=== PATIENT | male | born 1990 | race Caucasian/White ===

== ENCOUNTER 2021-12-29 07:56 | Emergency (ER) | payer MEDICAID, OTHER ==
[2021-12-29] MEDS ORDERED: XYLOCAINE 1% HCL 20 ML MDV ONE (08:07)
[2021-12-29 08:08] VITALS: O2SAT 98
[2021-12-29] MEDS ORDERED: BACIGUENT PACKET ONE (08:20)
--- NOTE | 2021-12-29 08:20 | ERPHSYRPT ---
- History of Present Illness Time Seen by Provider: 12/29/21 08:10 Source: patient Exam Limitations: no limitations Patient Subjective Stated Complaint: foreign object Triage Nursing Assessment: Patient ambulated back to ED and transferred self to bed. Patient A+O X3. Patient's skin pink, warm and dry. Patient states he was using a nail gun when the nail went into his left hand between his 1st and 2nd digit. Patient complains of intermittent sharp pain 4/10. Patient has nail sticking out of skin between 1st and 2nd digit. Physician History: Patient is a 31-year-old male who was working using an electrical nail gun when he impaled the webspace between the left thumb and index finger with a 2 to 3 inch nail. He has no other injuries he has no loss of sensation he has full range of motion the foreign body itself can be moved when palpated. This occurred just prior to arrival. By private vehicle. Patient states his tetanus is up-to-date. Occurred: just prior to arrival Method of Injury: incised Quality: throbbing Severity of Pain-Max: mild Severity of Pain-Current: mild Extremities Pain Location: hand: left (There is a 2 to 3 inch nail impaled in the webspace between the thumb and the index finger of the left hand. It entered from the dorsal aspect there is no exit wound.) Modifying Factors: Improves With: movement Associated Symptoms: none Allergies/Adverse Reactions: No Known Drug Allergies Allergy (Unverified 12/29/21 08:00) Hx Tetanus, Diphtheria Vaccination/Date Given: Yes Hx Influenza Vaccination/Date Given: No Hx Pneumococcal Vaccination/Date Given: No Immunizations Up to Date: Yes Travel Risk - International Travel Have you traveled outside of the country in past 3 weeks: No - Coronavirus Screening Are you exhibiting any of the following symptoms?: No Close contact with a COVID-19 positive Pt in past 14-21 Days: No - Vaccine Status Have you recieved a Covid-19 vaccination: No - Review of Systems Constitutional: No Fever, No Chills Eyes: No Symptoms Ears, Nose, & Throat: No Symptoms Respiratory: No Cough, No Dyspnea Cardiac: No Chest Pain, No Edema, No Syncope Abdominal/Gastrointestinal: No Abdominal Pain, No Nausea, No Vomiting, No Diarrhea Genitourinary Symptoms: No Dysuria Musculoskeletal: No Back Pain, No Neck Pain Skin: No Rash Neurological: No Dizziness, No Focal Weakness, No Sensory Changes Psychological: No Symptoms Endocrine: No Symptoms All Other Systems: Reviewed and Negative - Past Medical History Pertinent Past Medical History: No Neurological History: No Pertinent History ENT History: No Pertinent History Cardiac History: No Pertinent History Respiratory History: No Pertinent History Endocrine Medical History: No Pertinent History Musculoskeletal History: No Pertinent History GI Medical History: No Pertinent History History: No Pertinent History Psycho-Social History: No Pertinent History Male Reproductive Disorders: No Pertinent History - Past Surgical History Past Surgical History: No Neuro Surgical History: No Pertinent History Cardiac: No Pertinent History Respiratory: No Pertinent History Gastrointestinal: No Pertinent History Genitourinary: No Pertinent History Musculoskeletal: No Pertinent History Male Surgical History: No Pertinent History - Social History Smoking Status: Current every day smoker How long have you smoked: years Exposure to second hand smoke: Yes Drug Use: none Patient Lives Alone: No - Nursing Vital Signs Nursing Vital Signs: Initial Vital Signs Pulse Rate 81 12/29/21 08:01 Respiratory Rate 18 12/29/21 08:01 Blood Pressure 130/96 12/29/21 08:01 O2 Sat by Pulse Oximetry 98 12/29/21 08:01 Pain Scale Pain Intensity 4 - Physical Exam General Appearance: mild distress Eyes, Ears, Nose, Throat Exam: normal ENT inspection Neck Exam: normal inspection, non-tender Back Exam: normal inspection, normal range of motion Shoulder Exam: normal inspection, non-tender Elbow/Forearm Exam: normal inspection, non-tender Wrist Exam: normal inspection, non-tender Hand Exam: No normal inspection (Inspection of the left hand shows a nail impaled into the webspace between the thumb and the index finger.) Neuro/Tendon Exam: normal sensation, normal motor functions, normal tendon functions Mental Status Exam: alert, oriented x 3 Skin Exam: normal color, warm, dry, other (Nail impaled between the webspace of the thumb and index finger of the left hand) SpO2 Interpretation: normal SpO2: 98 O2 Delivery: Room Air Procedures - Laceration/Wound Repair Left Dorsal Hand Time of Procedure: 08:16 (Foreign body removed without difficulty after 3 cc of 1% lidocaine for anesthetic.) Wound Location: hand (Left hand) Wound Length (cm): 0.1 (There is a foreign body nail puncturing the webspace between the thumb and index finger left hand) Wound Explored: clean Irrigated: Yes Hibiclens Prep: Yes Anesthesia: 1% Lidocaine Volume Anesthetic (ccs): 4 Sterile Dressing Applied?: Yes Splint Applied?: No Sling Applied?: No - Course Nursing assessment & vital signs reviewed: Yes - Radiology Exams Left Hand X-ray Interpretation: Interpreted by me, Other (X-ray shows the foreign body shows no bony involvement or injury and was removed very easily.) Ordered Tests: Active Orders 24 hr Category Date Time Status HAND (MINIMUM 3 VIEWS) Stat Exams 12/29/21 08:08 Ordered Medication Summary Discontinued Medications Generic Name Dose Route Start Last Admin Trade Name Herveq PRN Reason Stop Dose Admin Lidocaine HCl Confirm 12/29/21 08:07 Lidocaine Hcl 1% 20 Ml Mdv 20 Ml Ml Administered 12/29/21 08:08 Dose 1 ml .ROUTE .STM&D ANTIQUES & CONSIGNMENT-MED ONE - Progress Progress: unchanged Progress Note: 12/29/21 08:20 Foreign body was removed without difficulty after it was anesthetized with 1% lidocaine 4 cc. He was cautioned about the possibility of infection even though he will be placed on prophylactic antibiotics. - Departure Departure Disposition: Home Clinical Impression: Foreign body of hand, left Condition: Stable Critical Care Time: No Instructions: Removal of Foreign Body in Skin Prescriptions: Cephalexin Mh 500 mg [Keflex 500 mg] 500 mg PO TID 7 Days #21 cap
[2021-12-29 08:34] VITALS: BP 121/83; PULSE 61
--- NOTE | 2021-12-29 09:10 | XRAY ---
Indication: Nail in hand. Comparison: None 3 view left hand demonstrates intact nail within the soft tissues anterior to 2nd metacarpal. No other bony, articular, or soft tissue abnormalities.
== END 2021-12-29 08:33 | disposition home or self-care (01) ==
LOC: ED 07:56
DX: S61.442A Puncture wound with foreign body of left hand, initial encounter (principal); W29.4XXA Contact with nail gun, initial encounter; Y93.H3 Activity, building and construction; Z72.0 Tobacco use
CPT/HCPCS: 10120; 73130; 99283; A9270-GY

== ENCOUNTER 2022-09-12 09:46 | Emergency (ER) | payer SELFPAY ==
[2022-09-12 10:41] LABS: INFLUENZA B NEGATIVE (NEGATIVE); RESPIRATORY SYNCTIAL VIRUS NEGATIVE (Negative); SARS-CoV-2 Xpert Express NEGATIVE (NEGATIVE)
[2022-09-12 10:46] LABS: INFLUENZA A POSITIVE (NEGATIVE)
--- NOTE | 2022-09-12 10:46 | ERPHSYRPT ---
- History of Present Illness Time Seen by Provider: 09/12/22 10:42 Source: patient Exam Limitations: no limitations Patient Subjective Stated Complaint: Pt states "For the past 8 days I have had body aches, fever, diarrhea and just not feeling well. I am coughing and my c hest ronquillo." Triage Nursing Assessment: Pt presented alert and oriented X 3, skin pwd. Pt ambulates with an upright steady gait, able to speak in clear full setences. Pt in no apaprent respiratory distress. Physician History: Pt states "For the past 8 days I have had body aches, fever, diarrhea and just not feeling well. I am coughing and my chest ronquillo." Pt ambulates with an upright steady gait, able to speak in clear full setences. Pt in no apaprent respiratory distress. Timing/Duration: day(s) (5-7 days) Cough Quality/Degree: no cough Possible Cause: no prior episodes Associated Symptoms: fever, chills Allergies/Adverse Reactions: No Known Drug Allergies Allergy (Verified 09/12/22 09:56) Hx Tetanus, Diphtheria Vaccination/Date Given: Yes Hx Influenza Vaccination/Date Given: No Hx Pneumococcal Vaccination/Date Given: No Immunizations Up to Date: Yes Travel Risk - International Travel Have you traveled outside of the country in past 3 weeks: No - Coronavirus Screening Are you exhibiting any of the following symptoms?: Yes Symptoms: Fever, Cough: New Onset, Vomiting/Diarrhea, Headaches/Body Aches/Fatigue Close contact with a COVID-19 positive Pt in past 14-21 Days: No - Vaccine Status Have you recieved a Covid-19 vaccination: No - Review of Systems Constitutional: Fever, Chills, Malaise Eyes: No Symptoms Ears, Nose, & Throat: No Symptoms Respiratory: No Cough, No Dyspnea Cardiac: No Chest Pain, No Edema, No Syncope Abdominal/Gastrointestinal: No Abdominal Pain, No Nausea, No Vomiting, No Diarrhea Genitourinary Symptoms: No Dysuria Musculoskeletal: No Back Pain, No Neck Pain Skin: No Rash Neurological: No Dizziness, No Focal Weakness, No Sensory Changes Psychological: No Symptoms Endocrine: No Symptoms All Other Systems: Reviewed and Negative - Past Medical History Pertinent Past Medical History: No Neurological History: No Pertinent History ENT History: No Pertinent History Cardiac History: No Pertinent History Respiratory History: No Pertinent History Endocrine Medical History: No Pertinent History Musculoskeletal History: No Pertinent History GI Medical History: No Pertinent History History: No Pertinent History Psycho-Social History: No Pertinent History Male Reproductive Disorders: No Pertinent History - Past Surgical History Past Surgical History: No Neuro Surgical History: No Pertinent History Cardiac: No Pertinent History Respiratory: No Pertinent History Gastrointestinal: No Pertinent History Genitourinary: No Pertinent History Musculoskeletal: No Pertinent History Male Surgical History: No Pertinent History - Social History Smoking Status: Current every day smoker How long have you smoked: years Exposure to second hand smoke: Yes Drug Use: none Patient Lives Alone: No - Nursing Vital Signs Nursing Vital Signs: Initial Vital Signs Temperature 100.9 F 09/12/22 09:53 Pulse Rate 107 H 09/12/22 09:53 Respiratory Rate 20 09/12/22 09:53 Blood Pressure 180/88 09/12/22 09:53 O2 Sat by Pulse Oximetry 99 09/12/22 09:53 Pain Scale Pain Intensity 6 - Physical Exam General Appearance: no apparent distress, alert Eye Exam: PERRL/EOMI, eyes nml inspection Ears, Nose, Throat Exam: normal ENT inspection, TMs normal, pharynx normal, moist mucous membranes Neck Exam: normal inspection, non-tender, supple, full range of motion Respiratory Exam: rhonchi, No respiratory distress Cardiovascular Exam: regular rate/rhythm, normal heart sounds Gastrointestinal/Abdomen Exam: soft, No tenderness Back Exam: normal inspection, No CVA tenderness, No vertebral tenderness Extremity Exam: normal inspection, normal range of motion Neurologic Exam: alert, oriented x 3, cooperative, normal mood/affect, sensation nml, No motor deficits Skin Exam: normal color, warm, dry, No rash Lymphatic Exam: No adenopathy SpO2: 99 - Course Nursing assessment & vital signs reviewed: Yes - Radiology Exams Chest X-ray Interpretation: Reviewed by me (right lower lobe infiltrate) Ordered Tests: Active Orders 24 hr Category Date Time Status CHEST 1 VIEW (PORTABLE) Stat Exams 09/12/22 10:00 Taken Lab/Rad Data: Laboratory Results 09/12/22 Range/Units 10:05 Influenza Type A Ag POSITIVE (NEGATIVE) Influenza Type B Ag NEGATIVE (NEGATIVE) RSV (PCR) NEGATIVE (Negative) SARS-CoV-2 (PCR) NEGATIVE (NEGATIVE) - Progress Progress: improved Air Movement: good Blood Culture(s) Obtained: No Antibiotics given: Yes Counseled pt/family regarding: lab results, diagnosis, need for follow-up, rad results - Departure Departure Disposition: Home Clinical Impression: Influenza A with pneumonia Condition: Stable Critical Care Time: No Referrals: DOCTOR,NO FAMILY [Primary Care Provider] - Follow up/PCP as directed Instructions: Flu, Adult (DC), Pneumonia, Adult (DC) Additional Instructions: Discharge/Care Plan TOM DALY JR was seen on 09/12/22 in the Emergency Room. The patient was counseled regarding Diagnosis,Lab results, Imaging studies, need for follow up and when to return to the Emergency Room. Prescriptions given: Discharge Note I have spoken with the patient and/or caregivers. I have explained the patient's condition, diagnosis and treatment plan based on the information available to me at this time. I have answered the patient's and/or caregiver's questions and addressed any concerns. The patient and/or caregivers have as good understanding of the patient's diagnosis, condition and treatment plan as can be expected at this point. The vital signs have been stable. The patient's condition is stable and appropriate for discharge from the emergency department. The patient will pursue further outpatient evaluation with the primary care physician or other designated or consulting physician as outlined in the discharge instructions. The patient and/or caregivers are agreeable to this plan of care and follow-up instructions have been explained in detail. The patient and/or caregivers have received these instruction. The patient/and or caregivers are aware that any significant change in condition or worsening of symptoms should prompt an immediate return to this or the closest emergency department or call 911. TOM DALY JR was seen on 09/12/22 n the Emergency Room. At that time you were treated for an emergent condition, during your visit Laboratory, Radiology and/or other procedures may have been ordered. It is very important that you follow-up with your Primary Care Physician NO FAMILY DOCTOR within the next 24-48 hours to review your Emergency Room visit and the final results of testing that was ordered. Some test results such as Urine Cultures, Blood Cultures, and other cultures if ordered will not be finalized for 24-48 hours. If you do not have a Primary Care Provider please call the medical records department at [phone] ext [phone] to obtain a copy of your results or you may sign into our patient portal to obtain these results by visiting us @ [email or web address] and completing the following steps: 1. Click on the Patient Portal link 2. Click the Patient Self Enrollment Link to complete the enrollment form and entering your 3. Once the enrollment form is completed you will receive an email with a temporary ID and password at the email address you provided. 4. Next choose a user name and password. Your user name must be at least 4 characters long and your password must be at least 4 characters long. 5. Choose a security question from the list and provide your answer to the question. If you already have signed into the Health Portal you may access your Health Care Information 03/05 by the following steps: 1. Login to our website @ [email or web address] 2. Enter your original user name and password. FAQS The [facility] Health Portal is an online tool that contains your Lab Results, Radiology Reports, Visit History, Discharge Instructions and Health Summary Lab and Radiology Results will not be available for 72 hours on the portal. The Portal is a secure site, passwords are encryted and URLs are re-written so they cannot be copied and pasted. You and authorized family members are the only ones who can access your Portal. Also there is a timeout feature that protects your information if you leave the Portal page open. If you have technical difficulty please use the Contact Us link on the page this will allow you to submit any questions you have regarding the Portal or you may contact the Medical Record Department at [phone]. Prescriptions: Methylprednisolone Packet [Medrol Dosepack] 4 mg PO UD #21 packet Oseltamivir 75 mg [Tamiflu 75MG Capsule] 75 mg PO BID #10 cap
[2022-09-12 10:50] VITALS: BP 132/78; PULSE 110; O2SAT 96
--- NOTE | 2022-09-12 17:30 | XRAY ---
Indication: Cough, short of breath, chills, and bodyaches 8 days. Comparison: None Portable chest demonstrates minimal right mid to lower lung stranding infiltrate versus atelectasis. Remaining heart, left lung, and bony thorax are normal.
== END 2022-09-12 10:56 | disposition home or self-care (01) ==
LOC: ED 09:46
DX: J10.00 Influenza due to other identified influenza virus with unspecified type of pneumonia (principal); R50.9 Fever, unspecified; M79.10 Myalgia, unspecified site; R19.7 Diarrhea, unspecified; R05.9 Cough, unspecified; Z28.310 Unvaccinated for COVID-19; Z72.0 Tobacco use; Z79.52 Long term (current) use of systemic steroids
CPT/HCPCS: 0241U; 71045; 99283

== ENCOUNTER 2022-12-01 18:56 | Emergency (ER) | payer OTHER ==
[2022-12-01 19:39] VITALS: BP 112/59; PULSE 68; O2SAT 98
[2022-12-01] MEDS ORDERED: Eye-Stream Solution ONE (20:54)
[2022-12-01] MEDS ORDERED: TETRACAINE 0.5% STERI-UNIT SOL OP ONE (20:54)
[2022-12-01] MEDS ORDERED: Fluor-I-Strip/Ful-Flo OP ONE ×2 (20:54→20:56)
[2022-12-01] MEDS ORDERED: TETRACAINE 0.5% STERI-UNIT SOL OP STA (20:56)
[2022-12-01] MEDS ORDERED: Eye-Stream Solution OP ONE (20:56)
[2022-12-01] MEDS ORDERED: Erythromycin 3.5 GM OPHTH. OP ONE (21:05)
[2022-12-01] MEDS ORDERED: Erythromycin 1 GM ONE (21:06)
--- NOTE | 2022-12-01 21:11 | ERPHSYRPT ---
- History of Present Illness Time Seen by Provider: 12/01/22 19:50 Exam Limitations: no limitations Patient Subjective Stated Complaint: pt states he was chiseling away some mortar and a piece flew up and hit him in the rt eye. states he flushed it well but is having continued pain and tearing. Triage Nursing Assessment: pt alert and oriented, answers questions approp. pt ambulates into room with steady gait noted. respirations nonlabore. skin warm and dry. tearing from rt eye noted. redness to sclera. Physician History: Patient is a 32-year-old male presents to the emergency department for evaluation of pain to his right eye. Patient states he was chiseling on mortar when a fragment flew and hit him in his right eye. Patient has pain in the right eye. No acute change in vision. No headache. No nausea or vomiting. No other injuries reported. Patient admits that he was not wearing protective eyewear. Patient voices no other complaints or concerns at this time. Portions of this note were created with voice recognition technology. There may be grammatical, spelling, punctuation or sound alike errors Timing/Duration: today Location: right eye Severity: moderate Apparent Injury: yes Associated Symptoms: pain, redness Visual Assistive Devices: None Chemical Exposure: No Trauma: Yes Welding Arc/Tanning Bed Exposure: No Allergies/Adverse Reactions: No Known Drug Allergies Allergy (Verified 12/01/22 19:39) Hx Tetanus, Diphtheria Vaccination/Date Given: Yes Hx Influenza Vaccination/Date Given: No Hx Pneumococcal Vaccination/Date Given: No Immunizations Up to Date: Yes Travel Risk - International Travel Have you traveled outside of the country in past 3 weeks: No - Coronavirus Screening Are you exhibiting any of the following symptoms?: No Close contact with a COVID-19 positive Pt in past 14-21 Days: No - Vaccine Status Have you recieved a Covid-19 vaccination: No - Review of Systems Constitutional: No Symptoms, No Fever, No Chills Eyes: No Symptoms Ears, Nose, & Throat: No Symptoms Respiratory: No Symptoms, No Cough, No Dyspnea Cardiac: No Symptoms, No Chest Pain, No Edema, No Syncope Abdominal/Gastrointestinal: No Symptoms, No Abdominal Pain, No Nausea, No Vomiting, No Diarrhea Genitourinary Symptoms: No Symptoms, No Dysuria Musculoskeletal: No Symptoms, No Back Pain, No Neck Pain Skin: No Symptoms, No Rash Neurological: No Symptoms, No Dizziness, No Focal Weakness, No Sensory Changes Psychological: No Symptoms Endocrine: No Symptoms Hematologic/Lymphatic: No Symptoms Immunological/Allergic: No Symptoms All Other Systems: Reviewed and Negative - Past Medical History Pertinent Past Medical History: No Neurological History: No Pertinent History ENT History: No Pertinent History Cardiac History: No Pertinent History Respiratory History: No Pertinent History Endocrine Medical History: No Pertinent History Musculoskeletal History: No Pertinent History GI Medical History: No Pertinent History History: No Pertinent History Psycho-Social History: No Pertinent History Male Reproductive Disorders: No Pertinent History - Past Surgical History Past Surgical History: No Neuro Surgical History: No Pertinent History Cardiac: No Pertinent History Respiratory: No Pertinent History Gastrointestinal: No Pertinent History Genitourinary: No Pertinent History Musculoskeletal: No Pertinent History Male Surgical History: No Pertinent History - Social History Smoking Status: Current every day smoker How long have you smoked: 15 yrs Exposure to second hand smoke: Yes Drug Use: none Patient Lives Alone: No - Nursing Vital Signs Nursing Vital Signs: Initial Vital Signs Temperature 96.9 F 12/01/22 19:28 Pulse Rate 68 12/01/22 19:28 Respiratory Rate 18 12/01/22 19:28 Blood Pressure 112/59 12/01/22 19:28 O2 Sat by Pulse Oximetry 98 12/01/22 19:28 Pain Scale Pain Intensity 8 - Physical Exam Vision Acuity Degree Evaluation Phase: Uncorrected Vision Acuity Right Eye: 20/200 Vision Acuity Left Eye: 20/200 Intraocular Pressure (Tonopen): right (16) Eye Exam: right eye: corneal abrasion, left eye: normal inspection, PERRL, EOMI Ears, Nose, Throat Exam: normal ENT inspection, TMs normal, pharynx normal Neck Exam: normal inspection, non-tender, supple, full range of motion Respiratory Exam: normal breath sounds, chest tenderness, lungs clear, respiratory distress Cardiovascular Exam: regular rate/rhythm, normal heart sounds, normal peripheral pulses Gastrointestinal Exam: soft, normal bowel sounds, No tenderness Extremity Exam: normal inspection, normal range of motion, No pelvis stable Neurologic: alert, oriented x 3, cooperative, 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 circuits inspector II-XII 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 as tested Skin Exam: normal color, warm, dry Lymphatic: No adenopathy SpO2 Interpretation: normal SpO2: 98 O2 Delivery: Room Air - Course Nursing assessment & vital signs reviewed: Yes Ordered Tests: Medication Summary Discontinued Medications Generic Name Dose Route Start Last Admin Trade Name Saul PRN Reason Stop Dose Admin Erythromycin 3.5 gm 12/01/22 21:05 Erythromycin Base 3.5 Gm Tube Eye Ointment OP 12/01/22 21:06 STAT ONE Erythromycin Confirm 12/01/22 21:06 Erythromycin Base 1 Gm Tube Eye Ointment Administered 12/01/22 21:07 Dose 1 gm .ROUTE .STK-MED ONE Eye Irrigation Solution Confirm 12/01/22 20:54 Sodium/Potassium/Nghia/Magnesium 30 Ml Eye Wash Administered 12/01/22 20:55 Dose 30 ml .ROUTE .STK-MED ONE Eye Irrigation Solution 15 ml 12/01/22 20:56 12/01/22 21:00 Sodium/Potassium/Nghia/Magnesium 30 Ml Eye Wash OP 12/01/22 20:57 30 ml STAT ONE Administration Fluorescein Sodium Confirm 12/01/22 20:54 Fluorescein Sodium 1 Mg/Strip Strip Administered 12/01/22 20:55 Dose 1 mg OP .STK-MED ONE Fluorescein Sodium 1 mg 12/01/22 20:56 12/01/22 20:59 Fluorescein Sodium 1 Mg/Strip Strip OP 12/01/22 20:57 1 mg STAT ONE Administration Tetracaine HCl Confirm 12/01/22 20:54 Tetracaine Hcl/Pf 4 Ml Bottle Administered 12/01/22 20:55 Dose 4 ml OP .STK-MED ONE Tetracaine HCl 4 ml 12/01/22 20:56 12/01/22 20:59 Tetracaine Hcl/Pf 4 Ml Bottle OP 12/01/22 20:57 4 ml STAT STA Administration - Progress Progress: improved Progress Note: Patient is a 32-year-old male presents to our ED for evaluation of eye pain. Patient was hit in the eye by a piece of mortar. Physical exam is negative for Derek. Negative Derek sign. No globe rupture. No hyphema. The only finding physical exam is a corneal abrasion at approximately 12:00. Patient does not wear contacts or eyeglasses. Patient is required to wear eyeglasses but states that he does not for unclear reasons. Diagnosis was made based on history and physical examination. Complexity of problems addressed is low. Problem is acute and uncomplicated. No critical care time. Complexity of data reviewed and analyzed is none. Risk of complication and or risk of morbidity/mortality of patient management is minimal. Patient management involves topical application of erythromycin ophthalmic antibiotic. Patient will be discharged home. He voices no other complaints concerns at this time. Pain well controlled at this time after application of tetracaine. Portions of this note were created with voice recognition technology. 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 The patient was counseled regarding Diagnosis,Lab results, Imaging studies, need for follow up and when to return to the Emergency Room. Prescriptions given: Discharge Note I have spoken with the patient and/or caregivers. I have explained the patient's condition, diagnosis and treatment plan based on the information available to me at this time. I have answered the patient's and/or caregiver's questions and addressed any concerns. The patient and/or caregivers have as good understanding of the patient's diagnosis, condition and treatment plan as can be expected at this point. The vital signs have been stable. The patient's condition is stable and appropriate for discharge from the emergency department. The patient will pursue further outpatient evaluation with the primary care physician or other designated or consulting physician as outlined in the discharge instructions. The patient and/or caregivers are agreeable to this plan of care and follow-up instructions have been explained in detail. The patient and/or caregivers have received these instruction. The patient/and or caregivers are aware that any significant change in condition or worsening of symptoms should prompt an immediate return to this or the closest emergency department or call 911. Prescriptions: Erythromycin Base 3.5 gm [Erythromycin 3.5 GM OPHTH.] 3.5 gm OP QID 7 Days #1
== END 2022-12-01 21:27 | disposition home or self-care (01) ==
LOC: ED 18:56
DX: S05.01XA Injury of conjunctiva and corneal abrasion without foreign body, right eye, initial encounter (principal); W20.8XXA Other cause of strike by thrown, projected or falling object, initial encounter; H57.11 Ocular pain, right eye; Z28.310 Unvaccinated for COVID-19; Z72.0 Tobacco use
CPT/HCPCS: 99281; A9270-GY

== ENCOUNTER 2023-08-06 15:36 | Emergency (ER) | payer OTHER ==
--- NOTE | 2023-08-06 15:46 | ERPHSYRPT ---
- History of Present Illness Time Seen by Provider: 08/06/23 15:46 Historian: patient Exam Limitations: no limitations Patient Subjective Stated Complaint: pt here for fever, vomiting,headache, aches since yesterday, no treatement Triage Nursing Assessment: pt alert, arrived per wc, resp easy, stuffy nose, dry cough, skin w/d/p. no edema noted, Physician History: This is a 33-year-old white male patient who is not on any medications and has no known drug allergies and presents with approximately 2-day history of nausea vomiting headache, fever and body aches. He also has nasal congestion and dry cough. He has no known exposures to individuals same symptoms or who have been diagnosed with viral illnesses. Patient is a bit concerned about dehydration. Patient denies chest pain. He denies shortness of breath Timing/Duration: yesterday Activities at Onset: none Quality: aching Severity of Pain-Max: none Severity of Pain-Current: none Modifying Factors: Improves With: vomiting Associated Symptoms: fever/chills, loss of appetite, nausea, vomiting, weakness, No chest pain, No diarrhea, No shortness of breath Previous symptoms: no prior history, no recent treatment Allergies/Adverse Reactions: No Known Drug Allergies Allergy (Verified 08/06/23 15:39) Hx Tetanus, Diphtheria Vaccination/Date Given: Yes Hx Influenza Vaccination/Date Given: No Hx Pneumococcal Vaccination/Date Given: No Immunizations Up to Date: Yes Travel Risk - International Travel Have you traveled outside of the country in past 3 weeks: No - Coronavirus Screening Are you exhibiting any of the following symptoms?: Yes Symptoms: Fever, Cough: New Onset, Vomiting/Diarrhea Close contact with a COVID-19 positive Pt in past 14-21 Days: No - Vaccine Status Have you recieved a Covid-19 vaccination: No - Review of Systems Constitutional: Fever, Weakness Eyes: No Symptoms Ears, Nose, & Throat: Throat Pain Respiratory: Cough Cardiac: No Symptoms Abdominal/Gastrointestinal: Nausea, Vomiting, Appetite Changes, No Abdominal Pain, No Diarrhea, No Constipation Genitourinary Symptoms: No Symptoms Musculoskeletal: Arthralgias, Myalgias Skin: No Symptoms Neurological: No Symptoms Psychological: No Symptoms Endocrine: No Symptoms Hematologic/Lymphatic: No Symptoms Immunological/Allergic: No Symptoms All Other Systems: Reviewed and Negative - Past Medical History Pertinent Past Medical History: No Neurological History: No Pertinent History ENT History: No Pertinent History Cardiac History: No Pertinent History Respiratory History: No Pertinent History Endocrine Medical History: No Pertinent History Musculoskeletal History: No Pertinent History GI Medical History: No Pertinent History History: No Pertinent History Psycho-Social History: No Pertinent History Male Reproductive Disorders: No Pertinent History - Past Surgical History Past Surgical History: No Neuro Surgical History: No Pertinent History Cardiac: No Pertinent History Respiratory: No Pertinent History Gastrointestinal: No Pertinent History Genitourinary: No Pertinent History Musculoskeletal: No Pertinent History Male Surgical History: No Pertinent History - Social History Smoking Status: Current every day smoker How long have you smoked: 15 yrs Exposure to second hand smoke: Yes Drug Use: none Patient Lives Alone: No - Nursing Vital Signs Nursing Vital Signs: Initial Vital Signs Temperature 101.3 F 08/06/23 15:44 Pulse Rate 120 H 08/06/23 15:44 Respiratory Rate 18 08/06/23 15:44 Blood Pressure 135/75 08/06/23 15:44 O2 Sat by Pulse Oximetry 95 08/06/23 15:44 Pain Scale Pain Intensity 7 - Physical Exam General Appearance: no apparent distress, alert, anxiety, thin Eye Exam: PERRL/EOMI, eyes nml inspection Ears, Nose, Throat Exam: normal ENT inspection, TMs normal, moist mucous membranes Neck Exam: normal inspection, non-tender, supple, full range of motion Respiratory Exam: normal breath sounds, lungs clear, airway intact, No chest tenderness, No respiratory distress Cardiovascular Exam: regular rate/rhythm, normal heart sounds, normal peripheral pulses Gastrointestinal/Abdomen Exam: soft, normal bowel sounds, No tenderness Rectal Exam: not done Back Exam: normal inspection, normal range of motion, No CVA tenderness, No vertebral tenderness Extremity Exam: normal inspection, normal range of motion, pelvis stable Neurologic Exam: alert, oriented x 3, cooperative, 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-XII nml as tested, normal mood/affect, nml cerebellar function, nml station & gait, sensation nml Skin Exam: normal color, warm, dry Lymphatic Exam: No adenopathy SpO2 Interpretation: normal SpO2: 95 O2 Delivery: Room Air - Course Nursing assessment & vital signs reviewed: Yes Ordered Tests: Active Orders 24 hr Category Date Time Status IV Insertion STAT Care 08/06/23 15:51 Active BLOOD CULTURE Stat Lab 08/06/23 16:00 Received CBC W DIFF Stat Lab 08/06/23 15:45 Completed CMP Stat Lab 08/06/23 15:45 Completed MONO SCREEN Stat Lab 08/06/23 16:00 Completed UA W/RFX UR CULTURE Stat Lab 08/06/23 17:26 Completed Medication Summary Generic Name Dose Route Start Last Admin Trade Name Saul PRN Reason Stop Dose Admin Sodium Chloride 1,000 mls @ 999 mls/hr 08/06/23 17:29 08/06/23 17:34 Sodium Chloride 0.9% 1000 Ml IV 08/06/23 18:29 999 mls/hr .Q1H1M STA Administration Discontinued Medications Generic Name Dose Route Start Last Admin Trade Name Saul PRN Reason Stop Dose Admin Hydrocodone Bitart/Acetaminophen 10 ml 08/06/23 17:28 08/06/23 17:34 Hydrocodone/Acetaminophen 5 Ml Udcup PO 08/06/23 17:29 10 ml STAT STA Administration Hydrocodone Bitart/Acetaminophen Confirm 08/06/23 17:32 Hydrocodone/Acetaminophen 5 Ml Udcup Administered 08/06/23 17:33 Dose 10 ml .ROUTE .STK-MED ONE Sodium Chloride 1,000 mls @ 999 mls/hr 08/06/23 15:51 08/06/23 16:57 Sodium Chloride 0.9% 1000 Ml IV 08/06/23 16:51 Infused .Q1H1M STA Infusion Sodium Chloride Confirm 08/06/23 15:54 Sodium Chloride 0.9% 1000 Ml Administered 08/06/23 15:55 Dose 1,000 mls @ ud .ROUTE .STK-MED ONE Sodium Chloride Confirm 08/06/23 17:32 Sodium Chloride 0.9% 1000 Ml Administered 08/06/23 17:33 Dose 1,000 mls @ ud .ROUTE .STK-MED ONE Ibuprofen 600 mg 08/06/23 17:28 08/06/23 17:34 Ibuprofen 600 Mg Tablet PO 08/06/23 17:29 600 mg STAT ONE Administration Ibuprofen Confirm 08/06/23 17:32 Ibuprofen 600 Mg Tablet Administered 08/06/23 17:33 Dose 600 mg .ROUTE .STK-MED ONE Ondansetron HCl 4 mg 08/06/23 15:51 08/06/23 15:56 Ondansetron Hcl 4 Mg/2 Ml Vial IV 08/06/23 15:52 4 mg STAT STA Administration Ondansetron HCl Confirm 08/06/23 15:54 Ondansetron Hcl 4 Mg/2 Ml Vial Administered 08/06/23 15:55 Dose 4 mg .ROUTE .[facility]-MED ONE Lab/Rad Data: Laboratory Result Diagrams 08/06/23 15:45 08/06/23 15:45 Laboratory Results 08/06/23 08/06/23 08/06/23 Range/Units 17:26 16:00 16:00 WBC (4.0-10.5) x10^3/uL RBC (4.1-5.6) x10^6/uL Hgb (12.5-18.0) g/dL Hct (42-50) % MCV (78-100) fL MCH (26-32) pg MCHC (32-36) g/dL RDW (11.5-14.0) % Plt Count (150-450) x10^3/uL MPV (7.5-11.0) fL Gran % (36.0-66.0) % Immature Gran % (Auto) (0.00-0.4) % Nucleat RBC Rel Count (0.00-0.1) % Eos # (Auto) (0-0.5) x10^3/uL Immature Gran # (Auto) (0.00-0.03) x10^3u/L Absolute Lymphs (auto) (1.0-4.6) x10^3/uL Absolute Monos (auto) (0.0-1.3) x10^3/uL Absolute Nucleated RBC (0.00-0.01) x10^3u/L Lymphocytes % (24.0-44.0) % Monocytes % (0.0-12.0) % Eosinophils % (0.00-5.0) % Basophils % (0.0-0.4) % Absolute Granulocytes (1.4-6.9) x10^3/uL Basophils # (0-0.4) x10^3/uL Sodium (137-145) mmol/L Potassium (3.5-5.1) mmol/L Chloride (98-107) mmol/L Carbon Dioxide (22-30) mmol/L Anion Gap (5-15) MEQ/L BUN (9-20) mg/dL Creatinine (0.66-1.25) mg/dL Estimated GFR ML/MIN Glucose (74-106) mg/dL Calcium (8.4-10.2) mg/dL Total Bilirubin (0.2-1.3) mg/dL AST (17-59) U/L ALT (0-50) U/L Alkaline Phosphatase (38-126) U/L Serum Total Protein (6.3-8.2) g/dL Albumin (3.5-5.0) g/dL Urine Color Yellow (Yellow) Urine Appearance Clear (Clear) Urine pH 5.5 (4.6-8.0) Ur Specific [place] 1.020 (1.005-1.030) Urine Protein Trace A (Negative) Urine Glucose (UA) Negative (Negative) mg/dL Urine Ketones 80 A (Negative) Urine Blood Negative (Negative) Urine Nitrite Negative (Negative) Urine Bilirubin Negative (Negative) Urine Urobilinogen 1.0 A (0.2) mg/dL Ur Leukocyte Esterase Negative (Negative) U Hyaline Cast (Auto) NONE SEEN (0-2) /LPF Urine Microscopic RBC 0-2 (0-5) /HPF Urine Microscopic WBC 0-2 (0-5) /HPF Ur Epithelial Cells None Seen (None Seen) /HPF Urine Bacteria None Seen (None Seen) /HPF Urine Culture Reflexed NO (NO) Monoscreen WEAKLY POSITIVE (NEGATIVE) Influenza Type A Ag NEGATIVE (NEGATIVE) Influenza Type B Ag NEGATIVE (NEGATIVE) RSV (PCR) NEGATIVE (NEGATIVE) SARS-CoV-2 (PCR) NEGATIVE (NEGATIVE) Group A Strep Antibody (NEGATIVE) Slides for Path Review 08/06/23 08/06/23 08/06/23 Range/Units 16:00 15:45 15:45 WBC 24.9 H (4.0-10.5) x10^3/uL RBC 4.61 (4.1-5.6) x10^6/uL Hgb 13.9 (12.5-18.0) g/dL Hct 40.0 L (42-50) % MCV 86.8 (78-100) fL MCH 30.2 (26-32) pg MCHC 34.8 (32-36) g/dL RDW 11.9 (11.5-14.0) % Plt Count 243 (150-450) x10^3/uL MPV 10.9 (7.5-11.0) fL Gran % 87.2 H (36.0-66.0) % Immature Gran % (Auto) 1.0 H (0.00-0.4) % Nucleat RBC Rel Count 0.0 (0.00-0.1) % Eos # (Auto) 0 (0-0.5) x10^3/uL Immature Gran # (Auto) 0.24 H (0.00-0.03) x10^3u/L Absolute Lymphs (auto) 0.96 L (1.0-4.6) x10^3/uL Absolute Monos (auto) 1.91 H (0.0-1.3) x10^3/uL Absolute Nucleated RBC 0.00 (0.00-0.01) x10^3u/L Lymphocytes % 3.9 L (24.0-44.0) % Monocytes % 7.7 (0.0-12.0) % Eosinophils % 0.0 (0.00-5.0) % Basophils % 0.2 (0.0-0.4) % Absolute Granulocytes 21.77 H (1.4-6.9) x10^3/uL Basophils # 0.04 (0-0.4) x10^3/uL Sodium 134 L (137-145) mmol/L Potassium 3.7 (3.5-5.1) mmol/L Chloride 100 (98-107) mmol/L Carbon Dioxide 21 L (22-30) mmol/L Anion Gap 16.5 H (5-15) MEQ/L BUN 13 (9-20) mg/dL Creatinine 0.89 (0.66-1.25) mg/dL Estimated GFR > 60.0 ML/MIN Glucose 150 H (74-106) mg/dL Calcium 9.1 (8.4-10.2) mg/dL Total Bilirubin 1.00 (0.2-1.3) mg/dL AST 28 (17-59) U/L ALT 23 (0-50) U/L Alkaline Phosphatase 130 H (38-126) U/L Serum Total Protein 8.1 (6.3-8.2) g/dL Albumin 4.6 (3.5-5.0) g/dL Urine Color (Yellow) Urine Appearance (Clear) Urine pH (4.6-8.0) Ur Specific [place] (1.005-1.030) Urine Protein (Negative) Urine Glucose (UA) (Negative) mg/dL Urine Ketones (Negative) Urine Blood (Negative) Urine Nitrite (Negative) Urine Bilirubin (Negative) Urine Urobilinogen (0.2) mg/dL Ur Leukocyte Esterase (Negative) U Hyaline Cast (Auto) (0-2) /LPF Urine Microscopic RBC (0-5) /HPF Urine Microscopic WBC (0-5) /HPF Ur Epithelial Cells (None Seen) /HPF Urine Bacteria (None Seen) /HPF Urine Culture Reflexed (NO) Monoscreen (NEGATIVE) Influenza Type A Ag (NEGATIVE) Influenza Type B Ag (NEGATIVE) RSV (PCR) (NEGATIVE) SARS-CoV-2 (PCR) (NEGATIVE) Group A Strep Antibody NOT DETECTED (NEGATIVE) Slides for Path Review YES - Progress Progress: improved, re-examined Progress Note: 08/06/23 17:27 This patient's medical issue is 1 of moderate complexity. Level complex in the work-up performed is based on review the patient's past medical history, review of the patient's medication list, review the patient's drug allergy list, history of present illness and physical findings on examination. The work-up in this patient includes placement of intravenous line, COVID, influenza a and B, RSV test, monotest, strep test, CBC, CMP, urinalysis. We will also provide the patient with 1 L of normal saline solution infusion and 4 mg of intravenous Zo nara infusion. We will provide the patient with oral ibuprofen and oral hydrocodone elixir once the patient is hydrated and has been on the Zofran for short period of time. Counseled pt/family regarding: lab results, diagnosis, need for follow-up Medical Desision Making - Diagnostic Testing Diagnostic test were ordered, analyzed, and reviewed by me: Yes - Risk of complications The pt has a mod risk of morbidity or mortality based on: Need for prescription drug management - Departure Departure Disposition: Home Clinical Impression: Viral illness, Mononucleosis, Dehydration, Vomiting Condition: Stable Critical Care Time: No Referrals: NAOMI RIVERA [Primary Care Provider] - Follow up/PCP as directed Additional Instructions: Drink plenty of clear liquids. Do do not advance your diet until you are drinking clear liquids well. Use Tylenol and ibuprofen for pain and fever control. Follow-up with your primary care provider for further evaluation management. Prescriptions: Ondansetron ODT 4 MG [Zofran Odt 4 mg] 4 mg PO Q6H PRN PRN #10 tablet PRN Reason: Vomiting
[2023-08-06] MEDS ORDERED: Sodium Chloride 0.9% 1000 ML 1,000 ML IV STA ×2 (15:51→17:29)
[2023-08-06] MEDS ORDERED: Zofran 4 MG/2 ML VIAL IV STA (15:51)
[2023-08-06] MEDS ORDERED: Zofran 4 MG/2 ML VIAL ONE (15:54)
[2023-08-06] MEDS ORDERED: Sodium Chloride 0.9% 1000 ML 1,000 ML ONE ×2 (15:54→17:32)
[2023-08-06 16:23] LABS: Absolute Neutrophil Ct (ANC) 21.77 x10^3/uL (1.4-6.9); BASOPHIL % 0.2 % (0.0-0.4); Basophil (Absolute #) 0.04 x10^3/uL (0-0.4); Eosinophil (Absolute #) 0 x10^3/uL (0-0.5); Hemoglobin 13.9 g/dL (12.5-18.0); IMMATURE GRAN # 0.24 x10^3u/L (0.00-0.03); Lymphocyte (Absolute #) 0.96 x10^3/uL (1.0-4.6); Lymphocytes % 3.9 % (24.0-44.0); Mean Cell Volume 86.8 fL (78-100); Mean Corpuscular Hemoglobin 30.2 pg (26-32); Mean Corpuscular Hgb Concent. 34.8 g/dL (32-36); Mean Platelet Volume 10.9 fL (7.5-11.0); Monocyte (Absolute #) 1.91 x10^3/uL (0.0-1.3); Monocytes % 7.7 % (0.0-12.0); Neutrophil % 87.2 % (36.0-66.0); Platelet Count 243 x10^3/uL (150-450); Red Blood Count 4.61 x10^6/uL (4.1-5.6); Red Cell Distribution Width 11.9 % (11.5-14.0); White Blood Count 24.9 x10^3/uL (4.0-10.5)
[2023-08-06 16:28] LABS: ALBUMIN 4.6 g/dL (3.5-5.0); ALKALINE PHOSPHATASE 130 U/L (38-126); ANION GAP 16.5 MEQ/L (5-15); BLOOD UREA NITROGEN 13 mg/dL (9-20); CHLORIDE 100 mmol/L (98-107); Calcium 9.1 mg/dL (8.4-10.2); Carbon Dioxide 21 mmol/L (22-30); Creatinine 1 0.89 mg/dL (0.66-1.25); EST GLOMERULAR FILTRATION RATE > 60.0 ML/MIN; Glucose 150 mg/dL (74-106); Potassium 3.7 mmol/L (3.5-5.1); SGOT/AST 28 U/L (17-59); SGPT/ALT 23 U/L (0-50); SODIUM 134 mmol/L (137-145); Total Protein 8.1 g/dL (6.3-8.2)
[2023-08-06 16:52] LABS: INFLUENZA A NEGATIVE (NEGATIVE); INFLUENZA B NEGATIVE (NEGATIVE); RESPIRATORY SYNCTIAL VIRUS NEGATIVE (NEGATIVE); SARS-CoV-2 Xpert Express NEGATIVE (NEGATIVE)
[2023-08-06] MEDS ORDERED: HYDROCODONE-ACETAMIN 2.5-108/5 ML SOLUTION PO STA (17:28)
[2023-08-06] MEDS ORDERED: MOTRIN 600 MG PO ONE (17:28)
[2023-08-06] MEDS ORDERED: HYDROCODONE-ACETAMIN 2.5-108/5 ML SOLUTION ONE (17:32)
[2023-08-06] MEDS ORDERED: MOTRIN 600 MG ONE (17:32)
[2023-08-06 17:37] LABS: Appearance Clear (Clear); Bacteria None Seen /HPF (None Seen); Bilirubin Negative (Negative); Blood Negative (Negative); Epithelial Cells None Seen /HPF (None Seen); Glucose, Urine Negative (Negative); Hyaline Casts NONE SEEN /LPF (0-2); Ketones 80 (Negative); Leukocyte Esterase Negative (Negative); Nitrite Negative (Negative); Ph 5.5 (4.6-8.0); Protein,Urine Dip Trace (Negative); RBC 0-2 /HPF (0-5); WBC 0-2 /HPF (0-5)
[2023-08-06 17:57] LABS: ADD URINE CULTURE? NO (NO)
[2023-08-06 17:57] LABS: Slide Review 1 YES
[2023-08-06] MEDS ORDERED: Sodium Chloride 0.9% 500 ML 500 ML IV ONE ×2 (18:22→18:24)
[2023-08-06 18:24] VITALS: RESP 16; TEMP 99
[2023-08-06 18:45] VITALS: BP 103/71; PULSE 100; O2SAT 96
== END 2023-08-06 18:51 | disposition home or self-care (01) ==
LOC: ED 15:36
DX: B27.90 Infectious mononucleosis, unspecified without complication (principal); E86.0 Dehydration; R11.2 Nausea with vomiting, unspecified; R51.9 Headache, unspecified; R50.9 Fever, unspecified; M79.18 Myalgia, other site; Z28.310 Unvaccinated for COVID-19; Z72.0 Tobacco use
CPT/HCPCS: 0241U; 36000; 36415; 80053; 81001; 85025; 86308; 87040; 87651; 96374; 99284; J2405; A9270-GY